=== PATIENT | female | born 1965 | race Caucasian/White ===

== ENCOUNTER 2021-02-22 03:51 | Inpatient (IN) | payer OTHER ==
[~2021-02-22] VITALS: Ht 154.9 cm; Wt 53.1 kg
[2021-02-22] MEDS ORDERED: FAMOTIDINE 20MG/2ML VIAL IV STA (06:16)
[2021-02-22] MEDS ORDERED: ONDANSETRON HCL 4MG/2ML INJ IV STA (06:16)
[2021-02-22] MEDS ORDERED: SODIUM CHLORIDE 0.9% 1,000 ML IV ONE (06:30)
[2021-02-22 06:52] LABS: CHLORIDE 94 mEq/L (98-107)
[2021-02-22] MEDS ORDERED: ASPIRIN 325MG EC TABLET PO ONE (07:00)
[2021-02-22 07:16] LABS: PROTHROMBIN TIME 10.5 sec (9.6-11.0)
[2021-02-22 07:35] LABS: BASOPHILS % 0.8 % (0.0-2.0); EOSINOPHILS % 0.3 % (0.0-5.0); HEMATOCRIT. 36.5 % (36.0-48.0); HEMOGLOBIN. 12.3 g/dL (12.0-16.0); LYMPHOCYTES % 15.3 % (20.0-50.0); MEAN CORPUSCULAR HEMOGLOBIN 27.8 pg (28.0-32.0); MEAN CORPUSCULAR VOLUME 82.2 fL (81.0-99.0); MEAN PLATELET VOLUME 7.8 fl (7.4-10.4); MONOCYTES % 5.8 % (2.0-8.0); NEUTROPHILS % 77.8 % (40.0-76.0); PLATELET 267 x1000/uL (130-400); RED BLOOD CELL COUNT 4.44 mill/uL (4.2-5.4); RED CELL DISTRIBUTION WIDTH 13.8 % (11.6-14.6)
[2021-02-22] MEDS ORDERED: ACETAMINOPHEN 325MG TABLET PO PRN (13:30)
[2021-02-22] MEDS ORDERED: ONDANSETRON HCL 4MG/2ML INJ IV PRN (13:30)
[2021-02-22] MEDS ORDERED: LORAZEPAM 2MG/ML CPJ IV PRN (15:00)
[2021-02-22] MEDS: THIAMINE HCL 100MG TABLET PO SCH (16:29)
[2021-02-22 17:08] LABS: CLARITY URINE CLEAR (CLEAR); COLOR URINE YELLOW (YELLOW); KETONES URINE NEGATIVE (NEGATIVE); LEUKOCYTE ESTERASE URINE 1+ (NEGATIVE); NITRITE URINE NEGATIVE (NEGATIVE); OCCULT BLOOD URINE NEGATIVE (NEGATIVE); PH URINE 6.5 (4.5-8.0); PROTEIN URINE NEGATIVE (NEGATIVE); UROBILINOGEN URINE 0.2 E.U./dL (0.2-1.0)
[2021-02-22 17:20] LABS: *AMPHETAMINES SCREEN URINE NEGATIVE (NEGATIVE); *BARBITURATES SCREEN URINE NEGATIVE (NEGATIVE); *BENZODIAZEPINES SCREEN URINE NEGATIVE (NEGATIVE); *COCAINE SCREEN URINE NEGATIVE (NEGATIVE); METHADONE URINE SCREEN NEGATIVE (NEGATIVE); OPIATES URINE SCREEN NEGATIVE (NEGATIVE)
[2021-02-22 17:21] LABS: CANNABINOID URINE SCREEN NEGATIVE (NEGATIVE); PHENCYCLIDINE URINE SCREEN NEGATIVE (NEGATIVE)
[2021-02-22 17:30] VITALS: BP 147/99
[2021-02-22] MEDS ORDERED: METO-396 PO (18:25)
[2021-02-22] MEDS ORDERED: TRAZ150T78 PO (18:25)
[2021-02-22] MEDS ORDERED: QUET100T PO (18:25)
[2021-02-22] MEDS ORDERED: PANT20TA17 PO (18:25)
[2021-02-22] MEDS ORDERED: ROPI2TAB28 PO (18:25)
[2021-02-22] MEDS ORDERED: THYR30TA2 PO (18:25)
[2021-02-22] MEDS ORDERED: METH-653 PO (18:25)
[2021-02-22] MEDS ORDERED: MELA5TAB19 PO (18:28)
[2021-02-22] MEDS ORDERED: HYDR-4346 PO (18:28)
[2021-02-22 20:00] VITALS: BP 146/96
[2021-02-22] MEDS ORDERED: TRAZ-251 PO (20:00)
[2021-02-22] MEDS: METOPROLOL TARTRATE 25MG TABLET PO SCH (20:47)
[2021-02-22] MEDS: METHOCARBAMOL 750MG TABLET PO SCH (20:48)
[2021-02-22] MEDS ORDERED: ROPINIROLE HCL 1MG TABLET PO SCH (21:00)
[2021-02-22] MEDS ORDERED: TRAZODONE HCL 50MG TABLET PO SCH (21:00)
[2021-02-22] MEDS ORDERED: QUETIAPINE FUMARATE 50MG TABLET PO SCH (21:00)
[2021-02-23] VITALS: BP 148/92
[2021-02-23 04:00] VITALS: BP 145/93
[2021-02-23 06:29] LABS: BASOPHILS % 0.8 % (0.0-2.0); EOSINOPHILS % 5.1 % (0.0-5.0); HEMATOCRIT. 33.3 % (36.0-48.0); HEMOGLOBIN. 11.1 g/dL (12.0-16.0); LYMPHOCYTES % 27.2 % (20.0-50.0); MEAN CORPUSCULAR HEMOGLOBIN 28.1 pg (28.0-32.0); MEAN CORPUSCULAR VOLUME 84.1 fL (81.0-99.0); MEAN PLATELET VOLUME 8.5 fl (7.4-10.4); MONOCYTES % 9.2 % (2.0-8.0); NEUTROPHILS % 57.7 % (40.0-76.0); PLATELET 220 x1000/uL (130-400); RED BLOOD CELL COUNT 3.96 mill/uL (4.2-5.4); RED CELL DISTRIBUTION WIDTH 13.6 % (11.6-14.6)
[2021-02-23 06:56] LABS: CHLORIDE 102 mEq/L (98-107)
[2021-02-23] MEDS ORDERED: LEVOTHYROXINE SODIUM 25MCG TABLET PO SCH (07:10)
[2021-02-23] MEDS ORDERED: OMEPRAZOLE 20MG CAPSULE EXTENDED RELEASE PO SCH (07:10)
[2021-02-23 08:00] VITALS: BP 125/89
[2021-02-23] MEDS ORDERED: MEDICATION NOT ON FORMULARY EA (Pantoprazole Sodium 20 MG) PO SCH (09:00)
[2021-02-23] MEDS ORDERED: MEDICATION NOT ON FORMULARY EA (Metoprolol Succinate 25 MG) PO SCH (09:00)
[2021-02-23] MEDS ORDERED: ASPIRIN 81MG TABLET PO SCH (09:00)
[2021-02-23] MEDS: METOPROLOL TARTRATE 25MG TABLET PO SCH (09:50)
[2021-02-23] MEDS: METHOCARBAMOL 750MG TABLET PO SCH (09:50)
[2021-02-23] MEDS: THIAMINE HCL 100MG TABLET PO SCH (09:50)
[2021-02-23 12:00] VITALS: BP 121/91
[2021-02-23 14:23] VITALS: BP 121/71
== END 2021-02-23 14:55 | disposition home or self-care (01) | DRG 392 ==
LOC: ER 03:51 → 8WST 10:26 → ENRESERV 14:03 → 8WST 16:35
PROVIDERS: ADMIT Internal Medicine; ATTEND Internal Medicine
DX: K52.9 Noninfective gastroenteritis and colitis, unspecified (principal); E87.1 Hypo-osmolality and hyponatremia; E87.6 Hypokalemia; R07.89 Other chest pain; I10 Essential (primary) hypertension; R10.9 Unspecified abdominal pain; F10.20 Alcohol dependence, uncomplicated; I25.10 Atherosclerotic heart disease of native coronary artery without angina pectoris; Z90.710 Acquired absence of both cervix and uterus; Z95.5 Presence of coronary angioplasty implant and graft; Z98.891 History of uterine scar from previous surgery; Z87.81 Personal history of (healed) traumatic fracture; Z71.41 Alcohol abuse counseling and surveillance of alcoholic
CPT/HCPCS: 36415; 71045; 80048; 80053; 80305; 81003; 84443; 84484; 85025; 93005; 93306; 99285; A4565; J2405; J3490; J7030